=== PATIENT | male | born 1955 | race Caucasian/White ===

== ENCOUNTER 2018-03-30 19:28 | Emergency (ER) | payer MEDICARE, OTHER ==
[2018-03-30 19:40] VITALS: TEMP 98.1
[2018-03-30 20:26] LABS: Partial Thromboplastin Time 24.3 sec (22.0-30.0); Prothrombin Time 9.9 sec (9.0-12.0)
[2018-03-30 20:31] LABS: ALT 75 U/L (21-72); AST 48 U/L (17-59); Albumin 3.9 g/dL (3.5-5.0); Alkaline Phosphatase 75 U/L (38-126); Anion Gap 17 mmol/L; Blood Urea Nitrogen 8 mg/dL (9-20); Calcium 8.8 mg/dL (8.4-10.2); Carbon Dioxide 18 mmol/L (22-30); Chloride 98 mmol/L (98-107); Glucose 109 mg/dL (74-99); Potassium 3.7 mmol/L (3.5-5.1); Sodium 133 mmol/L (137-145); Total Bilirubin 0.7 mg/dL (0.2-1.3); Total Protein 6.4 g/dL (6.3-8.2)
[2018-03-30 20:32] LABS: Basophils # (A) 0.1 k/uL (0-0.2); Basophils % (A) 1 %; Eosinophils # (A) 0.1 k/uL (0-0.7); Eosinophils % (A) 1 %; HGB 16.4 gm/dL (13.0-17.5); Lymphocytes # (A) 1.4 k/uL (1.0-4.8); Lymphocytes % (A) 14 %; MCH 31.3 pg (25.0-35.0); MCHC 33.4 g/dL (31.0-37.0); MCV 93.6 fL (80.0-100.0); Mean Platelet Volume 5.9; Monocytes # (A) 0.6 k/uL (0-1.0); Monocytes % (A) 6 %; Neutrophils # (A) 7.7 k/uL (1.3-7.7); Neutrophils % (A) 78 %; Platelet Count 240 k/uL (150-450); RBC 5.24 m/uL (4.30-5.90); RDW 13.2 % (11.5-15.5); WBC 9.9 k/uL (3.8-10.6)
[2018-03-30 20:35] LABS: Creatine Kinase 62 U/L (55-170)
--- NOTE | 2018-03-30 20:36 | CT ---
EXAMINATION TYPE: CT brain kitty urbina con DATE OF EXAM: 03/30/2018 COMPARISON: CT brain 03/01/2013 HISTORY: Fall. CT DLP: 1554.2 mGycm Automated exposure control for dose reduction was used. TECHNIQUE: CT scan of the head and cervical spine are performed without contrast. FINDINGS: There is some cerebral cortical atrophy. There is no mass effect nor midline shift. There is no sign of intracranial hemorrhage. The calvarium is intact. There is small mucus retention cyst left maxillary sinus. The cervical vertebra have normal alignment. There is apparent old anterior fusion at C6-7. Posterior elements are intact. There is spurring of the endplates at C4-5 C5-6. I see no compression fracture. Skull base is intact. IMPRESSION: Cerebral atrophy. No acute intracranial abnormality. Spondylotic changes in the cervical spine. No fracture. Atrophy is increased slightly compared to old exam.
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
[2018-03-30 20:50] LABS: Creatine Kinase MB 1.6 ng/mL (0.0-2.4); Troponin I <0.012 ng/mL (0.000-0.034)
[2018-03-30 20:54] LABS: Alcohol 281 mg/dL
[2018-03-30 21:04] LABS: Appearance,Urine Clear (Clear); Bilirubin,Urine Negative (Negative); Blood,Urine Trace (Negative); Color,Urine Colorless; Glucose,Urine (UA) Negative (Negative); Ketones,Urine Trace (Negative); Leukocyte Esterase,Urine Negative (Negative); Nitrite,Urine Negative (Negative); Protein,Urine Negative (Negative); Specific Gravity,Urine 1.002 (1.001-1.035); Squamous Epithelial Cell,Urine <1 /hpf (0-4); Urobilinogen,Urine <2.0 mg/dL (<2.0); WBC,Urine 1 /hpf (0-5)
[2018-03-30 21:10] LABS: Amphetamine Screen,Urine Not Detected (NotDetected); Barbiturate Screen,Urine Not Detected (NotDetected); Benzodiazepines Screen,Urine Not Detected (NotDetected); Cocaine Screen,Urine Not Detected (NotDetected); Methadone Screen, Urine Not Detected (NotDetected); Opiate Screen,Urine Not Detected (NotDetected); Oxycodone Screen, Urine Not Detected (NotDetected); Phencyclidine Screen,Urine Not Detected (NotDetected); Tricyclic Antidepressant,Urine Not Detected (NotDetected); Urn Cannabinoid Scrn Not Detected (NotDetected)
--- NOTE | 2018-03-30 21:38 | XR ---
EXAMINATION TYPE: XR chest 2V DATE OF EXAM: 03/30/2018 COMPARISON: November 13, 2014 HISTORY: Fall. Chest pain TECHNIQUE: Frontal and lateral views of the chest are obtained. FINDINGS: Heart and mediastinum are normal. Lungs are clear. Diaphragm is normal. IMPRESSION: No active cardiopulmonary disease. No change.
[2018-03-30] MEDS ORDERED: SODIUM CHLORIDE 0.9% 1,000 ML IV STA (21:40)
[2018-03-31 06:35] VITALS: BP 140/80; PULSE 88; RESP 16
== END 2018-03-31 06:36 | disposition home or self-care (01) ==
LOC: EC 19:28
DX: F10.10 Alcohol abuse, uncomplicated (principal); S00.31XA Abrasion of nose, initial encounter; S50.312A Abrasion of left elbow, initial encounter; G31.9 Degenerative disease of nervous system, unspecified; M47.812 Spondylosis without myelopathy or radiculopathy, cervical region; F17.200 Nicotine dependence, unspecified, uncomplicated; Y90.8 Blood alcohol level of 240 mg/100 ml or more; V18.4XXA Pedal cycle driver injured in noncollision transport accident in traffic accident, initial encounter; Y92.830 Public park as the place of occurrence of the external cause
CPT/HCPCS: 36415; 70450; 71046; 72125; 80053; 80306; 80320; 81001; 82550; 82553; 84484; 85025; 85610; 85730; 86850; 86900; 86901; 93005; 96360; 99285

== ENCOUNTER 2018-10-26 16:51 | Emergency (ER) | payer MEDICARE ==
[2018-10-26 16:58] VITALS: RESP 16
--- NOTE | 2018-10-26 18:14 | ED ---
General Adult HPI - General Chief complaint: Fall Stated complaint: Fall Time Seen by Provider: 10/26/18 17:05 Source: patient, family, EMS, RN notes reviewed, old records reviewed Mode of arrival: EMS Limitations: no limitations - History of Present Illness Initial comments: Chief complaint and history of present illness this is a 62-year-old male who reports running out of bed 2 or 3 days ago he had a syncopal episode falling forward putting his head into the wall. His son tried to convince him to come in earlier but didn't want to come. He presents today with headache. Patient is been ambulating since the incident. The patient has had chronic low back pain before this accident. - Related Data Home Medications Medication Instructions Recorded Confirmed Bismuth Subsalicylate 262 mg PO BID PRN 10/26/18 10/26/18 [Pepto-Bismol] Dm/Acetaminophen/Doxylamine [Vicks 2 cap PO Q6H PRN 10/26/18 10/26/18 Nyquil Liquicaps] guaiFENesin [Mucinex] 600 mg PO BID PRN 10/26/18 10/26/18 Previous Rx's Medication Instructions Recorded traMADol HCL [Ultram] 50 mg PO Q6HR PRN 3 Days #12 tab 10/26/18 Allergies Allergy/AdvReac Type Severity Reaction Status Date / Time No Known Allergies Allergy Verified 10/26/18 17:07 Review of Systems ROS Statement: Those systems with pertinent positive or pertinent negative responses have been documented in the HPI. Review of systems. Patient complains discomfort in the top of his head. Denies any neck pain. Complains of chronic low back pain which made worse by the fall. Patient states he did not lay on the floor long he passed out put his head into the wall and then got up shortly thereafter. This occurred 2-3 days ago. Past medical problems significant for hypertension and previous herniated disc. Patient does not take any medications. Surgeries include back surgery, neck fusion of C5-C6, right shoulder surgery. Family history noncontributory the patient does smoke. Strongly encouraged. He reports he does drink beer daily. ALLERGIES none. ROS Other: All systems not noted in ROS Statement are negative. Past Medical History Past Medical History: Hypertension Additional Past Medical History / Comment(s): Herniated disc History of Any Multi-Drug Resistant Organisms: None Reported Past Surgical History: Back Surgery Additional Past Surgical History / Comment(s): Neck fusion c5-6, right shoulder surgery Past Anesthesia/Blood Transfusion Reactions: Postoperative Nausea & Vomiting (PONV) Past Psychological History: Anxiety, Depression Smoking Status: Current every day smoker Past Alcohol Use History: Daily Past Drug Use History: None Reported - Past Family History Mother Family Medical History: No Reported History General Exam - General Exam Comments Initial Comments: General: The patient is awake and alert, Was complaining of a mild headache. Denies any nausea vomiting since the incident. Complains low back pain. Vital signs show temperature 98.2 pulse 88 respiratory rate 16 pulse ox 97% room air blood pressure 163/98. Eye: Pupils are equal, round and reactive to light, extra-ocular movements are intact; there is normal conjunctiva bilaterally. No signs of icterus. Ears, nose, mouth and throat: There are moist mucous membranes and no oral lesions. Neck: The neck is supple, there is no tenderness. Cardiovascular: There is a regular rate and rhythm. No murmur, rub or gallop is appreciated. Respiratory: Lungs are clear to auscultation, respirations are non-labored, breath sounds are equal. No wheezes, stridor, rales, or rhonchi. Gastrointestinal: Soft, non-distended, non-tender abdomen without masses or organomegaly noted. There is no rebound or guarding present. No CVA tenderness. Bowel sounds are unremarkable. Back: Minimal neck discomfort with flexion-extension. Chronic low back pain which he states is worse since the incident. Musculoskeletal: Normal ROM, no tenderness, There is no pedal edema. There is no calf tenderness or swelling. Sensation intact. Pulses equal bilaterally 2+. Neurological: CN II-XII intact, There are no obvious motor or sensory deficits. Coordination appears grossly intact. Speech is normal. No focal or lateralizing findings Skin: Skin is warm and dry and no rashes or lesions are noted. Psychiatric: Cooperative, appropriate mood & affect, normal judgment. Limitations: no limitations Course Vital Signs 10/26/18 10/26/18 16:55 18:17 Temperature 98.2 F Pulse Rate 88 82 Respiratory 16 16 Rate Blood Pressure 163/98 152/91 O2 Sat by Pulse 97 96 Oximetry Medical Decision Making - Medical Decision Making Medical decision making; is a 62-year-old male who had a vasovagal episode approximately 2 days ago. After getting up from bed going on his way to the toilet he passed out bumping his head. He's been home without any difficulty since then but complaint headache and his family member convinced him to come the emergency room. Patient is examination was all within normal limits. The patient's cervical spine and brain were scanned. The radiologist reports of the brain and C-spine that there is mild atrophy to the brain but no acute intracranial abnormalities. Concerning the cervical spine he reports a there is mild spondylotic changes of the lower C-spine. Some degree of spinal stenosis at C5-C6 do to hypertrophic posterior spur formation and endplates. No fracture, no change. As read by Dr. Mccain. The patient is neurologically intact. I discussed the findings which are chronic in nature. Patient was encouraged not to drink daily. Advised to call follow-up with family physician to stop smoking and alcohol use. Advised to follow-up with his family doctor. Disposition Clinical Impression: Vasovagal syncope Disposition: HOME SELF-CARE Condition: Fair Additional Instructions: Call follow-up family doctor. Stop smoking and stop drinking. Prescriptions: traMADol HCL [Ultram] 50 mg PO Q6HR PRN 3 Days #12 tab PRN Reason: Pain Is patient prescribed a controlled substance at d/c from ED?: No Referrals: Nikolai Dias MD [Primary Care Provider] - 1-2 days Time of Disposition: 19:13
--- NOTE | 2018-10-26 18:28 | CT ---
EXAMINATION TYPE: CT brain kitty morrissey DATE OF EXAM: 10/26/2018 COMPARISON: 03/30/2018 HISTORY: neck and low back pain since fall following syncopal episode. Headache CT DLP: 1425.6 mGycm Automated exposure control for dose reduction was used. TECHNIQUE: CT scan of the head and cervical spine are performed without contrast. FINDINGS: There is mild cerebral cortical atrophy. There is no mass effect nor midline shift. There is no sign of intracranial hemorrhage. The calvarium is intact. The cervical vertebra have fairly normal alignment. There is apparent old fusion anteriorly at C6 and C7. There is narrowing of the C4-5 C5-6 disc spaces. There is spur formation. The skull base appears intact. The posterior elements are intact. Facet joints are intact. IMPRESSION: Mild atrophy. No acute intracranial abnormality. No change. Mild spondylotic changes in the lower cervical spine. There is probably some degree of spinal stenosi s at C5-6 and C4-5 due to hypertrophic posterior spur formation of the endplates. Previous surgery. N o fracture. No change.
--- NOTE | 2018-10-26 18:30 | CT ---
EXAMINATION TYPE: CT lumbar spine wo con DATE OF EXAM: 10/26/2018 6:20 PM COMPARISON: None HISTORY: neck and low back pain since fall following syncopal episode. CT DLP: 1296 mGycm Automated exposure control for dose reduction was used. Unenhanced CT of the lumbar spine was performed. Bone and soft tissue window settings are submitted as well as coronal and sagittal reconstructions. Lumbar vertebra have normal spacing and alignment. Posterior elements are intact. There is no gwendolyn jacinto fracture. There is anterior spurring at T10 and T11. There is no evidence of lumbar paraspinal m ass. I see no focal bone destruction. IMPRESSION: Negative CT scan of the lumbar spine. No fracture.
[2018-10-26 19:21] VITALS: BP 153/99; PULSE 79; TEMP 98.9
== END 2018-10-26 19:19 | disposition home or self-care (01) ==
LOC: EC 16:51
DX: R55 Syncope and collapse (principal); R51 Headache; G31.9 Degenerative disease of nervous system, unspecified; M47.812 Spondylosis without myelopathy or radiculopathy, cervical region; M48.02 Spinal stenosis, cervical region; M54.5 Low back pain; G89.29 Other chronic pain; F17.200 Nicotine dependence, unspecified, uncomplicated; Z98.1 Arthrodesis status; W01.198A Fall on same level from slipping, tripping and stumbling with subsequent striking against other object, initial encounter; Y93.89 Activity, other specified
CPT/HCPCS: 70450; 72125; 72131; 99284

== ENCOUNTER 2019-09-28 03:07 | Emergency (ER) | payer MEDICARE, OTHER ==
[2019-09-28 03:16] VITALS: BP 157/98; PULSE 105; RESP 20
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
[2019-09-28 05:27] VITALS: TEMP 98.2
== END 2019-09-28 06:27 | disposition home or self-care (01) ==
LOC: EC 03:07
DX: T68.XXXA Hypothermia, initial encounter (principal); F17.200 Nicotine dependence, unspecified, uncomplicated; Z59.0 Homelessness; Z98.1 Arthrodesis status; X31.XXXA Exposure to excessive natural cold, initial encounter
CPT/HCPCS: 99283

== ENCOUNTER 2019-11-27 06:44 | Emergency (ER) | payer MEDICARE ==
[2019-11-27] MEDS ORDERED: ACETAMINOPHEN TAB 325 MG TAB PO STA (06:53)
--- NOTE | 2019-11-27 07:00 | ED ---
General Adult HPI - General Chief complaint: Headache Stated complaint: SOB Time Seen by Provider: 11/27/19 06:46 Source: patient, EMS, RN notes reviewed Mode of arrival: EMS Limitations: no limitations - History of Present Illness Initial comments: This a 63-year-old male presents emergency Department chief complaint of cough, fever, jaundice not feeling well. Patient states that he's had some nasal congestion, sinus pressure last few days. Patient states [facility] states that they have had another person test positive for COVID. Patient denies any chest pain, neck pain or neck stiffness. Patient states she's had some nausea without evidence of vomiting, diarrhea constipation. Patient does not take any current medications he is a daily smoker. Patient denies any known drug ALLERGIES. Patient denies any sore throat, ear pain, dizziness - Related Data Home Medications Medication Instructions Recorded Confirmed Bismuth Subsalicylate 262 mg PO BID PRN 10/26/18 10/26/18 [Pepto-Bismol] Dm/Acetaminophen/Doxylamine [Vicks 2 cap PO Q6H PRN 10/26/18 10/26/18 Nyquil Liquicaps] guaiFENesin [Mucinex] 600 mg PO BID PRN 10/26/18 10/26/18 Previous Rx's Medication Instructions Recorded traMADol HCL [Ultram] 50 mg PO Q6HR PRN 3 Days #12 tab 10/26/18 Azithromycin [Zithromax Z-pack] 0 mg PO DIRECTED #1 pack 11/27/19 Allergies Allergy/AdvReac Type Severity Reaction Status Date / Time No Known Allergies Allergy Verified 11/27/19 06:55 Review of Systems ROS Statement: Those systems with pertinent positive or pertinent negative responses have been documented in the HPI. ROS Other: All systems not noted in ROS Statement are negative. Past Medical History Past Medical History: Hypertension Additional Past Medical History / Comment(s): Herniated disc History of Any Multi-Drug Resistant Organisms: None Reported Past Surgical History: Back Surgery Additional Past Surgical History / Comment(s): Neck fusion c5-6, right shoulder surgery Past Anesthesia/Blood Transfusion Reactions: Postoperative Nausea & Vomiting (PONV) Past Psychological History: Anxiety, Depression Smoking Status: Current every day smoker Past Alcohol Use History: Daily Past Drug Use History: None Reported - Past Family History Mother Family Medical History: No Reported History General Exam Limitations: no limitations General appearance: alert, in no apparent distress, other (Vitals reviewed 100.2, pulse ox 94 in no distress) Head exam: Present: atraumatic, normocephalic, normal inspection Eye exam: Present: normal appearance, PERRL, EOMI. Absent: scleral icterus, conjunctival injection, periorbital swelling ENT exam: Present: normal exam, normal oropharynx, mucous membranes moist Neck exam: Present: normal inspection. Absent: tenderness, meningismus, lymphadenopathy Respiratory exam: Present: decreased breath sounds. Absent: respiratory dist ress, wheezes, rales, rhonchi, stridor Cardiovascular Exam: Present: regular rate, normal rhythm, normal heart sounds. Absent: systolic murmur, diastolic murmur, rubs, gallop, clicks GI/Abdominal exam: Present: soft, normal bowel sounds. Absent: distended, tenderness, guarding, rebound, rigid Neurological exam: Present: alert, oriented X3 Skin exam: Present: warm, dry, intact, normal color. Absent: rash Course Vital Signs 11/27/19 11/27/19 06:49 08:41 Temperature 100.2 F H 99.5 F Pulse Rate 98 94 Respiratory 18 20 Rate Blood Pressure 151/88 140/82 O2 Sat by Pulse 94 L 94 L Oximetry - Reevaluation(s) Reevaluation #1: 11/27/19 09:06 Patient reevaluated and updated on results patient is resting comfortably has no complaints of chest pain or shortness of breath. Patient was given Rocephin will be discharged. EKG Findings - EKG Comments: EKG Findings:: EKG performed at 17:25 normal sinus rhythm rate 97 VA 146 QRS 80 QT/QTc 372/345 - EKG Results: EKG: interpreted by ERMD Medical Decision Making - Medical Decision Making 63-year-old male presented for cough, congestion. Patient's lab were reviewed no significant abnormality's. Patient's x-ray shows evidence of pneumonia. Patient was given Rocephin emergency department. Patient be discharged in stable condition on azithromycin. Patient is in no respiratory distress. Patient was given strict return parameters patient agrees to plan.I counseled the patient for smoking cessation for greater than 3 minutes - Lab Data Result diagrams: 11/27/19 07:02 11/27/19 07:02 Lab Results 11/27/19 11/27/19 11/27/19 Range/Units 07:02 07:02 07:02 WBC 5.9 (3.8-10.6) k/uL RBC 4.95 (4.30-5.90) m/uL Hgb 16.0 (13.0-17.5) gm/dL Hct 47.3 (39.0-53.0) % MCV 95.4 (80.0-100.0) fL MCH 32.4 (25.0-35.0) pg MCHC 33.9 (31.0-37.0) g/dL RDW 12.1 (11.5-15.5) % Plt Count 191 (150-450) k/uL Neutrophils % 70 % Lymphocytes % 11 % Monocytes % 12 % Eosinophils % 2 % Basophils % 1 % Neutrophils # 4.2 (1.3-7.7) k/uL Lymphocytes # 0.7 L (1.0-4.8) k/uL Monocytes # 0.7 (0-1.0) k/uL Eosinophils # 0.1 (0-0.7) k/uL Basophils # 0.0 (0-0.2) k/uL D-Dimer 0.45 (<0.60) mg/L FEU Sodium 134 L (137-145) mmol/L Potassium 4.1 (3.5-5.1) mmol/L Chloride 102 (98-107) mmol/L Carbon Dioxide 22 (22-30) mmol/L Anion Gap 10 mmol/L BUN 8 L (9-20) mg/dL Creatinine 0.82 (0.66-1.25) mg/dL Est GFR (CKD-EPI)AfAm >90 (>60 ml/min/1.73 sqM) Est GFR (CKD-EPI)NonAf >90 (>60 ml/min/1.73 sqM) Glucose 114 H (74-99) mg/dL Plasma Lactic Acid Andres (0.7-2.0) mmol/L Calcium 8.8 (8.4-10.2) mg/dL Magnesium 1.7 (1.6-2.3) mg/dL Total Bilirubin 0.6 (0.2-1.3) mg/dL AST 22 (17-59) U/L ALT 21 (4-49) U/L Alkaline Phosphatase 56 (38-126) U/L Lactate Dehydrogenase 350 (313-618) U/L Total Protein 6.7 (6.3-8.2) g/dL Albumin 4.0 (3.5-5.0) g/dL Coronavirus (PCR) (Not Detectd) 11/27/19 11/27/19 Range/Units 07:02 07:02 WBC (3.8-10.6) k/uL RBC (4.30-5.90) m/uL Hgb (13.0-17.5) gm/dL Hct (39.0-53.0) % MCV (80.0-100.0) fL MCH (25.0-35.0) pg MCHC (31.0-37.0) g/dL RDW (11.5-15.5) % Plt Count (150-450) k/uL Neutrophils % % Lymphocytes % % Monocytes % % Eosinophils % % Basophils % % Neutrophils # (1.3-7.7) k/uL Lymphocytes # (1.0-4.8) k/uL Monocytes # (0-1.0) k/uL Eosinophils # (0-0.7) k/uL Basophils # (0-0.2) k/uL D-Dimer (<0.60) mg/L FEU Sodium (137-145) mmol/L Potassium (3.5-5.1) mmol/L Chloride (98-107) mmol/L Carbon Dioxide (22-30) mmol/L Anion Gap mmol/L BUN (9-20) mg/dL Creatinine (0.66-1.25) mg/dL Est GFR (CKD-EPI)AfAm (>60 ml/min/1.73 sqM) Est GFR (CKD-EPI)NonAf (>60 ml/min/1.73 sqM) Glucose (74-99) mg/dL Plasma Lactic Acid Andres 0.9 (0.7-2.0) mmol/L Calcium (8.4-10.2) mg/dL Magnesium (1.6-2.3) mg/dL Total Bilirubin (0.2-1.3) mg/dL AST (17-59) U/L ALT (4-49) U/L Alkaline Phosphatase (38-126) U/L Lactate Dehydrogenase (313-618) U/L Total Protein (6.3-8.2) g/dL Albumin (3.5-5.0) g/dL Coronavirus (PCR) Not Detected (Not Detectd) Disposition Clinical Impression: Pneumonia Disposition: HOME SELF-CARE Condition: Stable Instructions (If sedation given, give patient instructions): Pneumonia (ED) Additional Instructions: Please return to the Emergency Department if symptoms worsen or any other concerns. Prescriptions: Azithromycin [Zithromax Z-pack] 0 mg PO DIRECTED #1 pack Is patient prescribed a controlled substance at d/c from ED?: No Referrals: Nikolai Dias MD [Primary Care Provider] - 1-2 days Time of Disposition: 08:58
[2019-11-27 07:32] LABS: ALT 21 U/L (4-49); AST 22 U/L (17-59); African American GFR (CKD) >90 (>60 ml/min/1.73 sqM); Alkaline Phosphatase 56 U/L (38-126); Anion Gap 10 mmol/L; Blood Urea Nitrogen 8 mg/dL (9-20); Calcium 8.8 mg/dL (8.4-10.2); Carbon Dioxide 22 mmol/L (22-30); Chloride 102 mmol/L (98-107); Glucose 114 mg/dL (74-99); LDH 350 U/L (313-618); Magnesium 1.7 mg/dL (1.6-2.3); Non-African American GFR(CKD) >90 (>60 ml/min/1.73 sqM); Potassium 4.1 mmol/L (3.5-5.1); Sodium 134 mmol/L (137-145); Total Bilirubin 0.6 mg/dL (0.2-1.3); Total Protein 6.7 g/dL (6.3-8.2)
--- NOTE | 2019-11-27 07:40 | XR ---
EXAMINATION TYPE: XR chest 1V portable DATE OF EXAM: 11/27/2019 COMPARISON: 03/30/2018 INDICATION: Suspected Covid 19 pneumonia, fever cough short of breath TECHNIQUE: Single frontal view of the chest is obtained. FINDINGS: The heart size is normal. The pulmonary vasculature is normal. Mild right lower lobe infiltrate is present. This is nonspecific. Atelectasis or atypical pneumonia c ould be considered. IMPRESSION: 1. Mild infiltrate right lung base. Atelectasis, atypical pneumonia could be considered.
[2019-11-27 07:44] LABS: Basophils % (A) 1 %; Eosinophils # (A) 0.1 k/uL (0-0.7); Eosinophils % (A) 2 %; HCT 47.3 % (39.0-53.0); Lymphocytes # (A) 0.7 k/uL (1.0-4.8); Lymphocytes % (A) 11 %; MCH 32.4 pg (25.0-35.0); MCHC 33.9 g/dL (31.0-37.0); MCV 95.4 fL (80.0-100.0); Mean Platelet Volume 6.9; Monocytes # (A) 0.7 k/uL (0-1.0); Monocytes % (A) 12 %; Neutrophils # (A) 4.2 k/uL (1.3-7.7); Neutrophils % (A) 70 %; Platelet Count 191 k/uL (150-450); RBC 4.95 m/uL (4.30-5.90); RDW 12.1 % (11.5-15.5); WBC 5.9 k/uL (3.8-10.6)
[2019-11-27] MEDS ORDERED: IPRATROPIUM-ALBUTEROL 3 ML NEB INHALATION STA (07:52)
[2019-11-27] MEDS ORDERED: cefTRIAXone IN SWFI 1,000 MG/10 ML SYRINGE IVP STA (07:57)
[2019-11-27] MEDS ORDERED: ALBUTEROL HFA INHALER INHALATION STA (08:37)
[2019-11-27 08:42] VITALS: BP 140/82; PULSE 94; RESP 20; TEMP 99.5
[2019-11-27 09:53] LABS: C Reactive Protein 13.8 mg/L (<10.0)
== END 2019-11-27 09:21 | disposition home or self-care (01) ==
LOC: EC 06:44
DX: Z03.818 Encounter for observation for suspected exposure to other biological agents ruled out (principal); J18.9 Pneumonia, unspecified organism; Z71.6 Tobacco abuse counseling; F17.200 Nicotine dependence, unspecified, uncomplicated; Z53.8 Procedure and treatment not carried out for other reasons
CPT/HCPCS: 99284; 99406; 96374; 36415; 94640; 93005; 85379; 80053; 83605; 83615; 83735; 85025; 86140; 87040; 87635; 71045; J0696

== ENCOUNTER 2023-06-19 18:36 | Emergency (ER) | payer MEDICARE ==
[2023-06-19] MEDS ORDERED: METOCLOPRAMIDE 5 MG/ML 2 ML VIAL IVP STA (18:53)
[2023-06-19] MEDS ORDERED: PANTOPRAZOLE 40 MG/10 ML VIAL IVP STA (18:53)
[2023-06-19] MEDS ORDERED: SODIUM CHLORIDE 0.9% 1,000 ML IV STA ×2 (18:53→20:51)
--- NOTE | 2023-06-19 18:57 | ED ---
General Adult HPI - General Chief complaint: Nausea/Vomiting/Diarrhea Stated complaint: Vomiting Time Seen by Provider: 06/19/23 18:40 Source: patient, EMS, RN notes reviewed Mode of arrival: EMS Limitations: altered mental status - History of Present Illness Initial comments: Patient is a pleasant 67-year-old male presenting to the emergency department with complaints of not feeling well. Onset of symptoms was just a few days ago. Patient complains of decreased appetite, nausea and vomiting. Patient does have some discomfort of his upper abdomen. No history of similar symptoms previously. No history of drug use or significant alcohol use. No known liver disease. Patient does admit to feeling a little bit confused lately. No fevers. - Related Data Home Medications Medication Instructions Recorded Confirmed Unable To Assess [Unable to Assess] 06/19/23 06/19/23 Allergies Allergy/AdvReac Type Severity Reaction Status Date / Time No Known Allergies Allergy Verified 06/19/23 18:49 Review of Systems ROS Statement: Those systems with pertinent positive or pertinent negative responses have been documented in the HPI. ROS Other: All systems not noted in ROS Statement are negative. Constitutional: Denies: fever Eyes: Denies: eye pain ENT: Denies: ear pain Respiratory: Denies: cough, dyspnea Cardiovascular: Denies: chest pain Endocrine: Reports: fatigue Gastrointestinal: Reports: abdominal pain, nausea, vomiting. Denies: diarrhea, constipation Genitourinary: Denies: dysuria Musculoskeletal: Denies: back pain Skin: Denies: rash Neurological: Denies: headache Past Medical History Past Medical History: Hypertension Additional Past Medical History / Comment(s): Herniated disc History of Any Multi-Drug Resistant Organisms: None Reported Past Surgical History: Back Surgery Additional Past Surgical History / Comment(s): Neck fusion c5-6, right shoulder surgery Past Anesthesia/Blood Transfusion Reactions: Postoperative Nausea & Vomiting (PONV) Past Psychological History: Anxiety, Depression Past Alcohol Use History: Daily Past Drug Use History: None Reported - Past Family History Mother Family Medical History: No Reported History General Exam Limitations: altered mental status General appearance: alert, in no apparent distress Head exam: Present: normocephalic Eye exam: Present: scleral icterus ENT exam: Present: mucous membranes dry Neck exam: Present: normal inspection. Absent: tenderness, meningismus Respiratory exam: Present: normal lung sounds bilaterally Cardiovascular Exam: Present: regular rate, normal rhythm GI/Abdominal exam: Present: soft, tenderness (Mild to moderate tenderness of her abdomen, more so on the right), normal bowel sounds. Absent: pulsatile mass Extremities exam: Present: normal inspection Neurological exam: Present: alert. Absent: motor sensory deficit Expanded Neurological exam: Present: protecting the airway Patient oriented to: Present: person, place. Absent: time Psychiatric exam: Present: flat affect Skin exam: Present: other (Jaundice appearance) Course Vital Signs 06/19/23 06/19/23 06/19/23 18:45 20:53 21:00 Temperature 94.5 F L Pulse Rate 86 71 68 Respiratory 20 19 Rate Blood Pressure 91/71 59/28 96/53 O2 Sat by Pulse 99 97 100 Oximetry 06/19/23 06/19/23 06/19/23 21:07 22:10 22:21 Temperature 95.9 F L Pulse Rate 75 79 Respiratory 17 19 Rate Blood Pressure 90/47 70/40 76/33 O2 Sat by Pulse Oximetry 06/19/23 22:41 Temperature Pulse Rate 90 Respiratory 19 Rate Blood Pressure 90/52 O2 Sat by Pulse Oximetry EKG Findings - EKG Results: EKG: interpreted by ERMD ((X is. Low QRS. Septal and inferior Q waves.), sinus rhythm, normal ST/T Medical Decision Making - Medical Decision Making Was pt. sent in by a medical professional or institution ([facility], [employer], urgent care, hospital, or intermediate...) When possible be specific @ -No Did you speak to anyone other than the patient for history (EMS, parent, family, police, friend...)? What history was obtained from this source @ -No Did you review nursing and triage notes (agree or disagree)? Why? @ -I reviewed and agree with nursing and triage notes Were old charts reviewed (outside hosp., previous admission, EMS record, old EKG, old radiological studies, urgent care reports/EKG's, intermediate records)? Report findings @ -Previous visits reviewed and lab work. Differential Diagnosis (chest pain, altered mental status, abdominal pain women, abdominal pain men, vaginal bleeding, weakness, fever, dyspnea, syncope, headache, dizziness, GI bleed, back pain, seizure, CVA, palpatations, mental health, musculoskeletal)? @ -Differential Abdominal Pain Men: Appendicitis, cholecystitis, diverticulosis, ischemic bowel, pancreatitis, hepatitis, UTI, gastroenteritis, AAA, incarcerated hernia, bowel obstruction, constipation, inflammatory bowel, hepatitis, peptic ulcer disease, splenic infarction, perforated viscus, testicular torsion, this is not meant to be an all-inclusive list EKG interpreted by me (3pts min.). @ -As above X-rays interpreted by me (1pt min.). @ -KUB shows nonspecific changes CT interpreted by me (1pt min.). @ -Report reviewed U/S interpreted by me (1pt. min.). @ -Report reviewed What testing was considered but not performed or refused? (CT, X-rays, U/S, labs)? Why? @ -None What meds were considered but not given or refused? Why? @ -None Did you discuss the management of the patient with other professionals (professionals i.e. , PA, [employer], lab, RT, psych nurse, aids social worker, intake clerk, teacher, national insurance officer, window caser)? Give summary @ -Case was discussed with Dr. palacio and Dr. De La Cruz who both recommended transfer. Case was discussed with Dr. Rivera at [facility] who does agree with the accepting transfer. Case also discussed with transfer team who accepts transfer for Dr. Alan. Was smoking cessation discussed for >3mins.? @ -No Was critical care preformed (if so, how long)? @ -31 minutes. Care time Were there social determinants of health that impacted care today? How? (Homelessness, low income, unemployed, alcoholism, drug addiction, transp ortation, low edu. Level, literacy, decrease access to med. care, prison, rehab)? @ -No Was there de-escalation of care discussed even if they declined (Discuss DNR or withdrawal of care, Hospice)? DNR status @ -No What co-morbidities impacted this encounter? (DM, HTN, Smoking, COPD, CAD, Cancer, CVA, ARF, Chemo, Hep., AIDS, mental health diagnosis, sleep apnea, morbid obesity)? @ -None Was patient admitted / discharged? Hospital course, mention meds given and route, prescriptions, significant lab abnormalities, going to OR and other pertinent info. @ -Patient presents with fatigue nausea vomiting and jaundice. Patient has mild right upper quadrant tenderness. Patient has findings consistent and concerning for hepatic failure. There may be a component of hepatorenal syndrome. Ultrasound shows some sludge which does bring possible concern for sepsis as patient does have high white blood cell count and somewhat hypothermic. Blood cultures, lactic acid and IV and Biaxin were all started. Patient has received 3 L of normal saline as a bolus as blood pressure has been marginal at times. Last blood pressure was mid 90s systolic. Undiagnosed new problem with uncertain prognosis? @ -No Drug Therapy requiring intensive monitoring for toxicity (Heparin, Nitro, Insulin, Cardizem)? @ -No Were any procedures done? @ -No Diagnosis/symptom? @ -Acute liver failure, acute kidney injury, hyperkalemia Acute, or Chronic, or Acute on Chronic? @ -Acute, acute, acute Uncomplicated (without systemic symptoms) or Complicated (systemic symptoms)? @ -default Side effects of treatment? @ -No Exacerbation, Progression, or Severe Exacerbation? @ -No Poses a threat to life or bodily function? How? (Chest pain, [place], [place], pneumonia, PE, COPD, DKA, ARF, appy, cholecystitis, CVA, Diverticulitis, Homicidal, Suicidal, threat to staff... and all critical care pts) @ -High risk for life threatening illness. - Lab Data Result diagrams: 06/19/23 19:23 06/19/23 19:23 Lab Results 06/19/23 06/19/23 06/19/23 Range/Units 19:23 19:23 19:23 WBC 22.1 H (3.8-10.6) k/uL RBC 5.37 (4.30-5.90) m/uL Hgb 16.4 (13.0-17.5) gm/dL Hct 49.7 (39.0-53.0) % MCV 92.6 (80.0-100.0) fL MCH 30.5 (25.0-35.0) pg MCHC 32.9 (31.0-37.0) g/dL RDW 15.8 H (11.5-15.5) % Plt Count 45 L (150-450) k/uL MPV 10.0 Neutrophils % (Manual) 86 % Lymphocytes % (Manual) 4 % Monocytes % (Manual) 8 % Eosinophils % (Manual) 1 % Metamyelocytes % 1 % Myelocytes % 1 % Neutrophils # (Manual) 19.01 H (1.3-7.7) k/uL Lymphocytes # (Manual) 0.88 L (1.0-4.8) k/uL Monocytes # (Manual) 1.77 H (0-1.0) k/uL Eosinophils # (Manual) 0.22 (0-0.7) k/uL Metamyelocytes # (Man) 0.22 H (0) k/uL Myelocytes # (Manual) 0.22 H (0) k/uL Nucleated RBCs 0 (0-0) /100 WBC Manual Slide Review Performed Toxic Vacuolation Present Polychromasia Present Target Cells Present PT 36.5 H (10.0-12.5) sec INR 3.7 H (<1.2) APTT 43.8 H (22.0-30.0) sec Sodium 121 L (137-145) mmol/L Potassium 6.3 H* (3.5-5.1) mmol/L Chloride 86 L (98-107) mmol/L Carbon Dioxide 13 L (22-30) mmol/L Anion Gap 22 mmol/L BUN 55 H (9-20) mg/dL Creatinine 1.72 H (0.66-1.25) mg/dL Est GFR (CKD-EPI)AfAm 47 (>60 ml/min/1.73 sqM) Est GFR (CKD-EPI)NonAf 41 (>60 ml/min/1.73 sqM) Glucose 83 (74-99) mg/dL Calcium 8.0 L (8.4-10.2) mg/dL Total Bilirubin 15.5 H* (0.2-1.3) mg/dL AST 1772 H (17-59) U/L ALT 880 H (4-49) U/L Alkaline Phosphatase 1061 H (38-126) U/L Ammonia (<30) umol/L Total Protein 5.2 L (6.3-8.2) g/dL Albumin 2.5 L (3.5-5.0) g/dL Amylase <30 L (30-110) U/L Lipase 153 (23-300) U/L Coronavirus (PCR) (Not Detectd) 06/19/23 06/19/23 Range/Units 19:23 19:23 WBC (3.8-10.6) k/uL RBC (4.30-5.90) m/uL Hgb (13.0-17.5) gm/dL Hct (39.0-53.0) % MCV (80.0-100.0) fL MCH (25.0-35.0) pg MCHC (31.0-37.0) g/dL RDW (11.5-15.5) % Plt Count (150-450) k/uL MPV Neutrophils % (Manual) % Lymphocytes % (Manual) % Monocytes % (Manual) % Eosinophils % (Manual) % Metamyelocytes % % Myelocytes % % Neutrophils # (Manual) (1.3-7.7) k/uL Lymphocytes # (Manual) (1.0-4.8) k/uL Monocytes # (Manual) (0-1.0) k/uL Eosinophils # (Manual) (0-0.7) k/uL Metamyelocytes # (Man) (0) k/uL Myelocytes # (Manual) (0) k/uL Nucleated RBCs (0-0) /100 WBC Manual Slide Review Toxic Vacuolation Polychromasia Target Cells PT (10.0-12.5) sec INR (<1.2) APTT (22.0-30.0) sec Sodium (137-145) mmol/L Potassium (3.5-5.1) mmol/L Chloride (98-107) mmol/L Carbon Dioxide (22-30) mmol/L Anion Gap mmol/L BUN (9-20) mg/dL Creatinine (0.66-1.25) mg/dL Est GFR (CKD-EPI)AfAm (>60 ml/min/1.73 sqM) Est GFR (CKD-EPI)NonAf (>60 ml/min/1.73 sqM) Glucose (74-99) mg/dL Calcium (8.4-10.2) mg/dL Total Bilirubin (0.2-1.3) mg/dL AST (17-59) U/L ALT (4-49) U/L Alkaline Phosphatase (38-126) U/L Ammonia 43 H (<30) umol/L Total Protein (6.3-8.2) g/dL Albumin (3.5-5.0) g/dL Amylase (30-110) U/L Lipase (23-300) U/L Coronavirus (PCR) Not Detected (Not Detectd) Critical Care Time Critical Care Time: Yes Total Critical Care Time: 31 Disposition Clinical Impression: Acute kidney injury, Acute liver failure, Hyperkalemia Disposition: OTHER INSTITUTION NOT DEFINED Condition: Serious Is patient prescribed a controlled substance at d/c from ED?: No Referrals: Nikolai Dias MD [Primary Care Provider] - 1-2 days Time of Disposition: 23:00 - Out of Hospital Transfer - Req. Specs Out of Hospital Transfer - Requested Specifics: Other Emergency Center
[2023-06-19 20:39] LABS: HCT 49.7 % (39.0-53.0); HGB 16.4 gm/dL (13.0-17.5); MCH 30.5 pg (25.0-35.0); MCHC 32.9 g/dL (31.0-37.0); MCV 92.6 fL (80.0-100.0); RBC 5.37 m/uL (4.30-5.90); RDW 15.8 % (11.5-15.5); WBC 22.1 k/uL (3.8-10.6)
[2023-06-19 20:45] LABS: INR 3.7 (<1.2); Partial Thromboplastin Time 43.8 sec (22.0-30.0); Prothrombin Time 36.5 sec (10.0-12.5)
[2023-06-19 20:55] LABS: African American GFR (CKD) 47 (>60 ml/min/1.73 sqM); Albumin 2.5 g/dL (3.5-5.0); Anion Gap 22 mmol/L; Blood Urea Nitrogen 55 mg/dL (9-20); Carbon Dioxide 13 mmol/L (22-30); Chloride 86 mmol/L (98-107); Glucose 83 mg/dL (74-99); Lipase 153 U/L (23-300); Non-African American GFR(CKD) 41 (>60 ml/min/1.73 sqM); Sodium 121 mmol/L (137-145); Total Protein 5.2 g/dL (6.3-8.2)
[2023-06-19 21:03] LABS: Eosinophils # (M) 0.22 k/uL (0-0.7); Lymphocytes # (M) 0.88 k/uL (1.0-4.8); Metamyelocytes # (M) 0.22 k/uL (0); Metamyelocytes % 1 %; Monocytes # (M) 1.77 k/uL (0-1.0); Myelocytes # (M) 0.22 k/uL (0); Myelocytes % 1 %; Neutrophils # (M) 19.01 k/uL (1.3-7.7); Neutrophils % (M) 86 %; Nucleated Red Blood Cells 0 /100 WBC (0-0); Total Cells Counted 200
[2023-06-19 21:04] LABS: Platelet Count 45 k/uL (150-450); Polychromasia Present; Target Cells Present
[2023-06-19 21:07] LABS: Toxic Vacuolation Present
--- NOTE | 2023-06-19 21:07 | CT ---
EXAMINATION TYPE: CT brain wo con DATE OF EXAM: 06/19/2023 COMPARISON: 10/26/2018 INDICATION: AMS, multiple falls today. DLP: 1138.4 mGycm, Automated exposure control for dose reduction was used. CONTRAST: None CT of the brain is performed utilizing 3 mm thick sections through the posterior fossa and 3 mm thick sections through the remaining calvarium. Study is performed within 24 hours of arrival to the hosp [place]. No abnormal hyperdensity is present to suggest an acute intracranial hemorrhage. No mass lesion is evident. No acute infarcts are evident. Ventricles and sulci are appropriate for the patient age. Paranasal sinuses and mastoid air cells within the [id number] are clear. IMPRESSION: 1. No acute intracranial process. Follow-up MRI can be performed as clinically indicated.
--- NOTE | 2023-06-19 21:08 | XR ---
EXAMINATION TYPE: XR KUB DATE OF EXAM: 06/19/2023 COMPARISON: None INDICATION: Abdomen pain TECHNIQUE: Single view abdomen supine view FINDINGS: There is a normal bowel gas pattern. Psoas margins are normal. No organomegaly is present. IMPRESSION: 1. Unremarkable Abdomen
[2023-06-19 21:22] LABS: Potassium 6.3 mmol/L (3.5-5.1)
[2023-06-19 21:23] LABS: Amylase <30 U/L (30-110); Total Bilirubin 15.5 mg/dL (0.2-1.3)
[2023-06-19 21:25] LABS: ALT 880 U/L (4-49); AST 1772 U/L (17-59)
[2023-06-19 21:41] LABS: Alkaline Phosphatase 1061 U/L (38-126)
[2023-06-19] MEDS ORDERED: INSULIN REGULAR 100 UNIT/ML VIAL (IV) IV ONE (21:46)
[2023-06-19] MEDS ORDERED: SODIUM BICARB 8.4% 50 ML SYR (1 MEQ/ML) IV ONE (21:46)
[2023-06-19] MEDS ORDERED: DEXTROSE 50% SYRINGE 50 ML IVP ONE (21:46)
[2023-06-19] MEDS ORDERED: CALCIUM GLUCONATE IN NACL 1 GM in SALINE 1 100ML.BAG IVPB ONE (22:00)
--- NOTE | 2023-06-19 22:02 | US ---
EXAMINATION TYPE: US gallbladder DATE OF EXAM: 06/19/2023 COMPARISON: 09/14/15 CLINICAL INDICATION: Male, 67 years old with history of pain; Pt states he isn't having any abd pain. TECHNIQUE: Multiple sonographic images of the right upper quadrant are obtained. FINDINGS: EXAM MEASUREMENTS: Liver Length: 18.7 cm Gallbladder Wall: 0.87 cm CBD: 0.26 cm Right Kidney: 10.6 x 4.7 x 4.6 cm [employer] CLERK NOTES: Pancreas: Parts seen appear wnl Liver: Heterogeneous, hepatomegaly. Simple appearing Cystic area seen in rt lobe of liver measuring 1.0 x 1.0 x 1.1cm, seen on prior Gallbladder: Contracted and filled with echogenic material. The wall appears thickened Evidence for sonographic Lowe's sign: no CBD: Not well visualized Right Kidney: wnl IMPRESSION: 1. Hepatic cyst. 2. Sludge filled gallbladder. Some wall thickening may be present. Clinical consideration for cholecy stitis.
[2023-06-19] MEDS ORDERED: LEVOFLOXACIN 750MG-D5W PMX 750 MG in DEXTROSE/WATER 1 150ML.BAG IVPB STA (22:13)
[2023-06-19] MEDS ORDERED: SODIUM CHLORIDE 0.9% 500 ML 500 ML IV STA (22:15)
[2023-06-19] MEDS ORDERED: metroNIDAZOLE-NS PMX 500 MG in SALINE 1 100ML.BAG IVPB STA (22:17)
[2023-06-19 22:31] VITALS: RESP 19
[2023-06-19] MEDS ORDERED: NOREPINEPHRINE 4 MG in SODIUM CHLORIDE 0.9% 250 ML IV ONE (23:41)
[2023-06-20 00:20] VITALS: PULSE 87
[2023-06-20 00:32] LABS: Glucose,Whole Blood 105 mg/dL (70-110)
[2023-06-20 00:49] VITALS: BP 103/52; TEMP 96.8
[2023-06-20 02:45] LABS: Hepatitis A Antibody IgM Nonreactive; Hepatitis B Core IgM Nonreactive; Hepatitis B Surface Antigen Nonreactive; Hepatitis C IgG Antibody Nonreactive
== END 2023-06-20 00:46 | disposition other institution (70) ==
LOC: SUPCPDRO 18:36 → EC 18:36
DX: N17.9 Acute kidney failure, unspecified (principal); K72.00 Acute and subacute hepatic failure without coma; E87.5 Hyperkalemia; I10 Essential (primary) hypertension; Z20.822 Contact with and (suspected) exposure to COVID-19
CPT/HCPCS: 36415 ×2; 93005; 80053; 80074; 82140; 82150; 83605; 83690; 85025; 85610; 85730; 87040; 87635; 74018; 76705; 70450; 99291; 51702; 96365; 96366; 96367; 96368; 96375 ×4; 96361; J1956; C9113; J0613; J1836